=== PATIENT | male | born 1955 ===

== ENCOUNTER 2021-05-20 23:43 | Emergency (ER) | payer SELFPAY ==
[~2021-05-20] VITALS: Ht 175.3 cm; Wt 99.0 kg
[2021-05-20 23:56] VITALS: BP 155/83
--- NOTE | 2021-05-21 01:21 | NUR ---
F/U AND D/C INSTRUCTIONS AND PRESCRIPTIONS GIVEN TO PT AND HE V/U. PT AMBULATORY AND D/C'D WITHOUT INCIDENT.
== END 2021-05-21 01:23 | disposition home or self-care (01) ==
LOC: ED 23:50
DX: S46.812A Strain of other muscles, fascia and tendons at shoulder and upper arm level, left arm, initial encounter (principal); S20.212A Contusion of left front wall of thorax, initial encounter; V49.49XA Driver injured in collision with other motor vehicles in traffic accident, initial encounter; Y93.89 Activity, other specified; Y92.410 Unspecified street and highway as the place of occurrence of the external cause; Y99.8 Other external cause status
CPT/HCPCS: 71045; 99284